=== PATIENT | male | born 1985 | race Asian ===

== ENCOUNTER 2019-10-16 19:28 | Emergency (ER) | payer OTHER ==
[~2019-10-16] VITALS: Ht 185.4 cm; Wt 95.3 kg
[2019-10-16] MEDS ORDERED: ALBUTEROL0.083 % INH (19:51)
[2019-10-16 21:05] VITALS: BP 138/79; TEMP 99.8
== END 2019-10-16 21:05 | disposition home or self-care (01) ==
LOC: ED 19:28
DX: J11.1 Influenza due to unidentified influenza virus with other respiratory manifestations (principal); R50.9 Fever, unspecified; F17.210 Nicotine dependence, cigarettes, uncomplicated
CPT/HCPCS: 87502; 87651; 99283